=== PATIENT | female | born 1950 | race Hispanic/Latino ===

== ENCOUNTER 2020-05-03 04:11 | Emergency (ER) | payer MEDICARE, BC ==
[2020-05-03] MEDS ORDERED: Cephalexin 250 MG CAP ONE (04:31)
[2020-05-03] MEDS ORDERED: Adacel (T-DAP) 0.5 ML SYRINGE ONE (04:31)
== END 2020-05-03 04:30 | disposition home or self-care (01) ==
LOC: BURERS 04:11
DX: S90.851A Superficial foreign body, right foot, initial encounter (principal); E11.9 Type 2 diabetes mellitus without complications; Z79.4 Long term (current) use of insulin; Z79.82 Long term (current) use of aspirin; Z79.899 Other long term (current) drug therapy; W26.9XXA Contact with unspecified sharp object(s), initial encounter
CPT/HCPCS: 10120; 90471; 90715

== ENCOUNTER 2020-07-13 09:21 | Emergency (ER) | payer MEDICARE, BC ==
[2020-07-13] MEDS ORDERED: Lidocaine 1% w/Epinephrine 1:100K 20 ML VIAL ONE (09:36)
[2020-07-13] MEDS ORDERED: Bacitracin 1 PK ONE (09:36)
[2020-07-13] MEDS ORDERED: Acetaminophen 500 MG TAB ONE (10:52)
--- NOTE | 2020-07-13 11:12 | CT ---
CT OF THE BRAIN WITHOUT CONTRAST: Date: 07/13/2020 Comparison is made with the prior CT dated 07/04/2007. The ventricles are normal in size with no shift. No intracranial bleeding or extra-axial hematoma see n. A soft tissue hematoma is seen over the right side of the forehead and right supraorbital region. The underlying skull appears intact. The visible paranasal sinuses and mastoid air cells are clear. T he zygomatic arches and nasal bones appear intact. IMPRESSION: Focal soft tissue hematoma over the right side of the forehead, but no acute intracranial findings. Preliminary report called to Dr. Maxwell at 1024 hours on 07/13/2020. CODE CR. POS: HOME
--- NOTE | 2020-07-13 11:13 | RAD ---
LEFT KNEE 4 VIEWS: Date: 07/13/2020 No fracture or joint effusion seen. The articular surfaces are smooth. The joint space is normal in w idth. IMPRESSION: No acute bony finding. POS: HOME
== END 2020-07-13 10:57 | disposition home or self-care (01) ==
LOC: BURERS 09:21
DX: S01.01XA Laceration without foreign body of scalp, initial encounter (principal); S83.92XA Sprain of unspecified site of left knee, initial encounter; E11.9 Type 2 diabetes mellitus without complications; W01.198A Fall on same level from slipping, tripping and stumbling with subsequent striking against other object, initial encounter; Z79.899 Other long term (current) drug therapy; Z79.84 Long term (current) use of oral hypoglycemic drugs; Z79.82 Long term (current) use of aspirin
CPT/HCPCS: 12002; 70450